=== PATIENT | male | born 1970 | race Hispanic/Latino ===

== ENCOUNTER 2024-05-09 19:57 | Emergency (ER) | payer OTHER ==
--- OUTSIDE RECORDS SUMMARY | 2024-05-09 20:00 | XMS REPORT | Continuity of Care Document ---
Author Name Unknown Address [address] [facility] [address] [place] [address] [facility] Address [address] [facility] [place] [address] Care Team Providers Care Translator Interpreter Name Role Phone EMI CHRISTIAN Primary Care Physician Unavailab Beau Bird I Attending Clinician Unavail able ALEA MCNULTY K.HAlexander Attending Clinician Unavaila JERRY Lau Attending Clinician Unavailable Luis Fernando Coronado Attending Clinician [phone] Jerry Astorga MD Attending Clinician [phone] Alea Mcnulty MD K.HAlexander Attending Clinician + [phone] Nurse, [facility] Attending Clinician Un available Unknown, Attending Attending Clinician Unavailab ALE Lan Attending Clinician Unavailable Doctor Unassigned, [place] Attending Clinician U navailBeau Reece I Admitting Clinician Unavail able JERRY ASTORGA Admitting Clinician Unavailable Jerry Astorga MD Admitting Clinician [phone] Payers Payer Name Policy Type Policy Number Effective Date Expirati on Date Source [employer] [id number] 2020 00:00:00 Problems Condition Name Condition Details Condition Category Status Onset Date Resolution Date Last Treatment Date Treating Clinician Comments Source Atypical chest pain Atypical chest pain Disease Active 03-28 00:00: 00 [facility] Dyslipidem ia Dyslipidem ia Disease Active 03-28 00:00: 00 [facility] Type 2 diabetes mellitus without complicati on Type 2 diabetes mellitus without complicati on Disease Active 03-28 00:00: 00 [facility] Palpitatio ns Palpitatio ns Disease Active 03-28 00:00: 00 [facility] Family history of premature CAD Family history of premature CAD Disease Active 03-28 00:00: 00 [facility] Morbid obesity with body mass index of 40.0-49.9 Morbid obesity with body mass index of 40.0-49.9 Disease Active 03-28 00:00: 00 [facility] No known active problems No known active problems Disease [facility] Allergies, Adverse Reactions, Alerts Allergy Name Allergy Type Status Severity Reaction(s) Onset Date Inactive Date Treating Clinician Comments Source No Known Allergie s DA Active U 04-22 00:00: 00 [facility] NO KNOWN ALLERGIE S Drug Class Active [facility] Social History Social Habit Start Date Stop Date Quantity Comments Source History SDOH Alcohol Binge [facility] Exposure to SARS-CoV-2 (event) Not sure [facility] History SDOH Alcohol Frequency [facility] History SDOH Alcohol Std Drinks [facility] Education 2021-03-28 00:00:00 2021-03-28 00:00:00 13 [facility] Tobacco Comment 2021-03-28 00:00:00 2021-03-28 00:00:00 pt reports quit 10-15 years ago. reports still vapes without nicotine [facility] Alcohol intake 2021-03-28 00:00:00 2021-03-28 00:00:00 Current drinker of alcohol (finding) [facility] Alcohol Comment 2013-01-12 00:00:00 2013-01-12 00:00:00 12 pack/ 2 times per month [facility] Tobacco use and exposure 2013-01-12 00:00:00 2013-01-12 00:00:00 Never used [facility] History of tobacco use 2006-07-25 00:00:00 Cigarette Smoker [facility] Sex Ass[birth year] At 1970 00:00:00 1970 00:00:00 [facility] Smoking Status Start Date Stop Date Source Former smoker 2013-01-12 00:00:00 2013-01-12 00:00:00 [facility] Medications Ordered Medication Name Filled Medication Name Start Date Stop Date Current Medication? Ordering Clinician Indication Dosage Frequency Signature (SIG) Comments Components Source Sliding Scale Insulin - Lispro (HumaLOG) + Fsbg Testing 03-29 13:30: 00 Yes Subcutaneo us, AC, First dose on Fri03/29/21 at 0730, Until Discontinu ed, Routine [facility] semaglutide (OZEMPIC) 0.25 mg or 0.5 mg(2 mg/1.5 mL) PnIj 03-29 12:04: 38 Yes .5mg inject 0.5 mg under the skin weekly. [facility] rosuvastati n 20 mg CpSP 03-29 12:04: 38 Yes 20mg Take 20 mg by mouth daily. [facility] aspirin 81 mg EC tablet 03-29 12:04: 38 Yes 81mg Take 81 mg by mouth daily. [facility] zolpidem (AMBIEN) tablet 5 mg 03-29 00:51: 20 Yes 5mg 5 mg, Oral, QHSPRN, Starting on Fri03/28/21 at 1851, Until Discontinu ed, Routine, Insomnia [facility] enoxaparin (LOVENOX) injection 40 mg 03-28 23:00: 00 Yes 40mg 40 mg, Subcutaneo us, DAILY, First dose on Fri03/28/21 at 1700, Until Discontinu ed, Routine [facility] sulfur hexafluorid e microsphr (LUMASON) injection 5 mL 03-28 22:15: 00 03-28 22:15 :00 No [id number] 5mL 5 mL, Intravenou s, ONCE, 1 dose, On Fri03/28/21 at 1615, Routine
human resources team member approving Restricted medication : MISBAH DEL CID [facility] HYDROcodone -acetaminop hen (NORCO 5) 5-325 mg tablet 1 tablet 03-28 20:57: 04 03-30 20:56 :04 No 1{tbl} 1 tablet, Oral, Q6HPRN, Starting on Fri03/28/21 at 1457, Until Fri03/30/21 at 1456, Routine, Pain (scale 4-6) [facility] acetaminoph en (TYLENOL) tablet 650 mg 03-28 20:57: 01 Yes 650mg 650 mg, Oral, Q6HPRN, Starting on Fri03/28/21 at 1457, Until Discontinu ed, Routine, Pain (scale 1-3) [facility] ketorolac (TORADOL) injection 15 mg 03-28 20:15: 00 03-28 19:21 :00 No 15mg 15 mg, Slow IV Push, ONCE, 1 dose, On Fri03/28/21 at 1415, Routine
human resources team member approving Restricted medication : Luis Fernando SHANKAR [facility] nitroglycer in (NITROL) 2 % ointment 0.5 Inch 03-28 18:45: 00 03-28 18:45 :00 No .5[in_u s] 0.5 Inch, Transderma l (Apply To Skin), ONCE, 1 dose, On Fri03/28/21 at 1245, INDY [facility] aspirin chewable tablet 324 mg 03-28 17:45: 00 03-28 16:50 :00 No 324mg 324 mg, Oral, ONCE, 1 dose, On Fri03/28/21 at 1145, Routine [facility] ibuprofen (MOTRIN) 800 mg tablet 2012-02 00:00: 00 Yes [id number] 9100 800mg Take 1 Tab by mouth every 6 (six) hours as needed (pain). [facility] Vital Signs Vital Name Observation Time Observation Value Comments S ource Systolic blood pressure 2021-03-29 17:15:00 126 mm[Hg] [facility] Diastolic blood pressure 2021-03-29 17:15:00 75 mm[Hg] [facility] Heart rate 2021-03-29 17:15:00 81 /min [facility] Body temperature 2021-03-29 17:15:00 36.61 Emy [facility] Respiratory rate 2021-03-29 17:15:00 18 /min [facility] Oxygen saturation in Arterial blood by Pulse oximetry 2021-03-29 17:15:00 94 /min [facility] Body height 2021-03-28 23:43:00 172.7 cm [facility] Body weight 2021-03-28 23:43:00 119.976 kg [facility] BMI 2021-03-28 23:43:00 40.22 kg/m2 [facility] Heart rate 2021-03-28 15:30:00 95 /min [facility] Body temperature 2021-03-28 15:30:00 37 Emy [facility] Respiratory rate 2021-03-28 15:30:00 18 /min [facility] Body height 2021-03-28 15:30:00 172.7 cm [facility] Body weight 2021-03-28 15:30:00 125.193 kg [facility] BMI 2021-03-28 15:30:00 41.97 kg/m2 [facility] Oxygen saturation in Arterial blood by Pulse oximetry 2021-03-28 15:30:00 96 /min [facility] Systolic blood pressure 2021-03-28 15:30:00 123 mm[Hg] [facility] Diastolic blood pressure 2021-03-28 15:30:00 80 mm[Hg] [facility] Procedures Procedure Date / Time Performed Performing Clinician Source POCT GLUCOSE (AUTOMATED) 2021-03-29 17:18:00 Jerry Astorga [facility] POCT GLUCOSE (AUTOMATED) 2021-03-29 13:54:00 Jerry Astorga [facility] MAGNESIUM 2021-03-29 10:45:00 [facility] BASIC METABOLIC PANEL (NA, K, CL, CO2, GLUCOSE, BUN, CREATININE, CA) 2021-03-29 10:45:00 Jerry Astorga [facility] CBC WITH DIFF 2021-03-29 10:45:00 Jerry Astorga [facility] PHOSPHORUS 2021-03-29 00:00:00 Jerry [facility]orga [facility] THYROID STIMULATING HORMONE 2021-03-29 00:00:00 Agnieszka Diaz [facility] TROPONIN I 2021-03-28 23:59:00 Jerry [facility]orga [facility] POCT GLUCOSE (AUTOMATED) 2021-03-28 22:22:00 Jerry Astorga [facility] TRANSTHORACIC ECHO (TTE) COMPLETE W/ CONTRAST 2021-03-28 21:43:00 Jerry Astorga [facility] COVID-19 (ID NOW RAPID TESTING) 2021-03-28 19:53:00 Luis Fernando Shankar [facility] TROPONIN I 2021-03-28 18:24:00 Luis Fernando Shankar [facility] LIPID PANEL (43000)(TOTAL CHOLESTEROL, TRIGLYCERIDES, HDL) 2021-03-28 18:24:00 Alea Mcnulty.Chris [facility] N-TERMINAL PRO-BNP 2021-03-28 18:24:00 Alea Mcnulty [facility] ASSIGNMENT OF BENEFITS 2021-03-28 17:05:55 Docto r Unassigned, [place] [facility] XR CHEST 1 VW 2021-03-28 16:48:59 Jian Hastings [facility] LIPASE 2021-03-28 16:23:00 Jian Hastings [facility] TROPONIN I 2021-03-28 16:23:00 Jian Hastings [facility] COMP. METABOLIC PANEL (72375) 2021-03-28 16:23:00 [facility]FF 2021-03-28 16:23:00 Jian Hastings [facility] GLYCOSYLATED HEMOGLOBIN (A1C) 2021-03-28 16:23:00 Alea Mcnulty [facility] PROTHROMBIN TIME / INR 2021-03-28 16:23:00 Maurice Hastings [facility] D-DIMER 2021-03-28 16:23:00 Luis Fernando Shankar [facility] ACTIVATED PARTIAL THRMPLAS DORY 2021-03-28 16:23:00 Jian Hastings [facility] NOTICE OF PRIVACY PRACTICES 2021-03-28 16:01:47 Doctor Unassigned, [place] [facility] CONSENT/REFUSAL FOR DIAGNOSIS AND TREATMENT 2021-03-28 16:01:20 Doctor Unassigned, [place] [facility] CONSENT/REFUSAL FOR DIAGNOSIS AND TREATMENT 2021-03-28 15:32:31 Doctor Unassigned, [place] [facility] Encounters Start Date/Time End Date/Time Encounter Type Admission Type Attending [facility] Care Facility Care Department Encounter ID Source 2023-04-25 09:07:00 2023-04-25 09:07:00 Outpatient Beau Connelly [facility] [id number] [facility] 2021-04-16 16:00:00 2021-04-16 16:00:00 Outpatient ALEA GONGORA [facility] [id number] [facility] 2021-04-14 08:15:00 2021-04-14 08:15:00 Outpatient ALEA GONGORA [facility] [id number] [facility] 2021-03-28 10:18:00 2021-03-29 11:53:00 Outpatient [facility] [id number] [facility] 2021-03-28 10:18:00 2021-03-29 11:53:00 Emergency Luis Fernando Shankar [facility] [id number] [facility] 2021-03-29 00:00:00 2021-03-29 00:00:00 Case Management Alea Mcnulty [facility] [id number] [id number] [facility] 2021-03-28 09:50:00 2021-03-28 10:10:00 Nurse Visit Nurse, [facility] Unknown, Attending [facility] [id number] [facility] 2021-03-28 09:50:00 2021-03-28 09:50:00 Outpatient ALE DUNN [facility] [id number] [facility] 2021-03-28 00:00:00 2021-03-28 00:00:00 Orders Only Doctor Unassigned, [place] [facility] [id number] [id number] [facility] Results Test Description Test Time Test Comments Results Result Co mments Source GLUCOSE BEDSIDE [id number] 09:51:00* Test Item Value Reference Range Interpretation Comme nts GLUCOSE BEDSIDE TESTING (sharon t code = GLUBED) 123 mg/dL 70-110 H PROTHROMBIN [id number] 16:24:00* Test Item Value Reference Range Interpretation Comme [facility] PT PATIENT (test code = PTP) 11.9 SECONDS 9.3-12.9 N INTERNATIONAL NORMAL RATIO (test code = INR) 1.06 INR Unit 0.8-1.2 N TARGET INR BY INDICATION Indication INR1. Prophylaxis of venous thrombosis 2.0 - 3.0 (orthopedic surgery), Prophylaxis of venous thrombosis (other than high-risk surgery), Treatment of Deep Vein Thrombosis/Pulmonary Embolism, Prevention of systemic embolism - Tissue heart valves, Acute Myocardial Infarction (to prevent systemic embolism), Valvular heart disease, Acute Myocardial Infarction (to prevent systemic embolism), Valvular heart disease, Atrial Fibrillation, Bileaflet mechanical valve in aortic position.2. Mechanical prosthetic valves (high risk), 2.5 - 3.5 Presence of Lupus Anticoagulant or Antiphospholipid Antibodies, Prevention of systemic embolism - Acute Myocardial Infarction (to prevent recurrent infarct). COVID 19 INHOUSE [id number] 16:17:00* Test Item Value Reference Range Interpretation Comme nts COVID 19 INHOUSE AG (test code = [id number]) NEGATIVE Negative Per stave cutter , negative results should be treated aspresumptive and, if inconsistent with clinical signs andsymptoms or necessary for patient management, should betested with an alternative molecular assay. Negative resultsdo not preclude SARS-CoV-2 infection and should not be usedas the sole basis for patient management decisions. Negative results should be considered in the context of apatient's recent exposures, history, presence of clinicalsigns and symptoms consistent with COVID-19. BASIC METABOLIC [id number] 16:11:00* Test Item Value Reference Range Interpretation Comme nts SODIUM (test code = NA) 139 mmol/L 136-145 N POTASSIUM (test code = K) 4.1 mmol/L 3.5-5.1 N CHLORIDE (test code = CL) 103 mmol/L 98-107 N CARBON DIOXIDE (test code = CO2) 27 mmol/L 21-32 N ANION GAP (test code = GAP) 9 GAP calc 4-15 N GLUCOSE (test code = GLU) 96 MG/DL 70-110 N BLOOD UREA NITROGEN (test code = BUN) 15 MG/DL 7-18 N GLOMERULAR FILTRATION RATE (test code = GFR) >=60 max estimate estGFR >60 The Glomerular Filtration Rate is a calculated parameterbased on serum Creatinine, patient age and sex. GFR valuesless than 60 mL/min/1.73 square meters are indicative ofChronic Kidney Disease. Values less than 15 mL/min/1.73square meters indicate Kidney failure. The calculation forGFR is based on the CKD-EPI (202) calculation. This formulais race indifferent and is the recommended formula for GFRby the National Kidney Foundation for Adults.The GFR will not calculate if the sex is unknown or if thepatient's age is <18 years. CREATININE (test code = CREAT) 0.8 MG/DL 0.8-1.3 N CALCIUM (test code = CA) 9.1 MG/DL 8.5-10.1 N - XR CHEST 1 [id number] 15:47:00 [facility] 1970 Sex: M Name: SARINA POSADA [facility] : 1970 Age/S: 52 / M [address] Unit #: [id number] Loc: [place] [address] Phys: Edda Wright MD Acct: [id number] Dis Date: Status[place] [facility] [place] #: [phone] Exam Date: 04/22/2023 1520 FAX #: Reason: SURGERY EXAMS: CPT: [id number] XR CHEST1 V 16753 Fluoro Time: DAP (Gy m2): Air Kerma (mGy): STUDY: Chest radiograph HISTORY: Surgery COMPARISON: None. TECHNIQUE: Frontal view of the chest. LOCATION: H19 FINDINGS: The cardiac silhouette isunremarkable. There is no focal consolidation, pleural effusion, or pneumothorax. No acute osseousabnormalities are identified. IMPRESSION: No radiographic evidence for acute pulmonary abnormality. at 1547 Reported and signed by: Curtis Blackwell M.D. CC: Edda Wright MD; Obonorumfela Moseley DO PAGE 1 Signed Report Name: SARINA POSADA [facility] : 1970 Age/S: 52 / M [address] [facility] Unit #: [id number] Loc: [place] [address] Phys: Edda Wright MD Acct: [id number] Dis Date: Status: PRE SDC PHONE #: [phone] Exam Date: 04/22/2023 1520 FAX #: Reason: SURGERY EXAMS: CPT: [id number] XR CHEST 1 V 19408 Fluoro Time: DAP (Gy m2): Air Kerma (mGy): (Continued) Technologist: Mis Siddiqui, RT(R)(CT) Trnscb Date/Time: 04/22/2023 (0387) t.[id number] Orig Print D/T: S: 04/22/2023 (5849) PAGE 2 Signed ReportCBC W/AUTO [id number] 15:19:00* Test Item Value Reference Range Interpretation Comme nts WHITE BLOOD CELL (test code = WBC) 7.4 K/mm3 3.5-11.0 N RED BLOOD CELL (test code = RBC) 5.14 M/mm3 4.70-6.10 N HEMOGLOBIN (test code = HGB) 14.2 G/DL 12.3-15.9 N HEMATOCRIT (test code = HCT) 43.4 % 35.8-46.7 N MEAN CELL VOLUME (test code = MCV) 84.4 Fl 86.3-98.9 L MEAN CELL HGB (test code = MCH) 27.6 pg 28.9-34.4 L MEAN CELL HGB CONCETRATION (test code = MCHC) 32.7 G/DL 32.1-34.5 N RED CELL DISTRIBUTION WIDTH (test code = RDW) 13.3 SD 11.5-14.5 N PLATELET COUNT (test code = PLT) 269 K/mm3 150-450 N MEAN PLATELET VOLUME (test c ode = MPV) 9.40 fL 7.0-9.6 N NEUTROPHIL % (test code = NT%) 64.5 % 40-76 N IMMATURE GRANULOCYTE % (test code = IG%) 0.3 % 0.0-5.0 N LYMPHOCYTE % (test code = LY%) 27.3 % 20.5-51.1 N MONOCYTE % (test code = MO%) 6.5 % 1.7-9.3 N EOSINOPHIL % (test code = EO%) 1.1 % 0.0-6.0 N BASOPHIL % (test code = BA%) 0.3 % 0.0-2.0 N NUCLEATED RBC % (test code = NRBC%) 0.0 /100WBC% 0.0-1.0 N NEUTROPHIL # (test code = NT#) 4.8 K/mm3 1.8-7.6 N IMMATURE GRANULOCYTE # (test code = IG#) 0.02 x10 3/uL 0.00-0.03 N LYMPHOCYTE # (test code = LY#) 2.0 K/mm3 0.6-3.0 N MONOCYTE # (test code = MO#) 0.5 K/mm3 0.2-1.5 N EOSINOPHIL # (test code = EO#) 0.1 K/mm3 0.0-0.4 N BASOPHIL # (test code = BA#) 0.0 K/mm3 0.0-0.2 N NUCLEATED RBC # (test code = NRBC#) 0.0 K/mm3 0.00-0.01 N POCT GLUCOSE (AUTOMATED)2021-03-29 17:42:23* Test Item Value Reference Range Interpretation Comme [facility] POCT GLU (test code = 7635266229) 102 mg/dL 70-110 Lab Interpretation (test cod e = 10690-6) Normal [facility]2021-03-29 14:04:03* Test Item Value Reference Range Interpretation Comme [facility] POCT GLU (test code = 7252281275) 107 mg/dL 70-110 Lab Interpretation (test cod e = 06144-7) Normal [facility] Metabolic Panel (NA, K, CL, CO2, GLUCOSE, BUN, CREATININE, CA)2021-03-29 12:51:14* Test Item Value Reference Range Interpretation Comme nts NA (test code = 6255577502) 137 mmol/L 135-145 K (test code = 9620313621) 4.3 mmol/L 3.5-5.0 CL (test code = 0765605305) 105 mmol/L 98-108 CO2 TOTAL (test code = 0463262281) 26 mmol/L 23-31 AGAP (test code = 1317229507) 2-16 BUN (test code = 5028981282) 17 mg/dL 7-23 GLUCOSE (test code = 8632741317) 110 mg/dL 70-110 CREATININE (test code = 6850956806) 0.78 mg/dL 0.60-1.25 CALCIUM (test code = 5736655909) 8.6 mg/dL 8.6-10.6 eGFR (test code = 1025139050) mL/min/1.73m2 JOSÉ LUIS (test code = JOSÉ LUIS) Association of Glomerular Filtration Rate (GFR) and Staging of Kidney Disease* + + +- +| GFR (mL/min/1.73 m2) ?| With Kidney Damage ?| ?Without Kidney Damage+ ------+ ----+ ------+| ?>90 ?| ?Stage one ?| ? Normal ?+ -+ + -+| ?60-89 ?| ?Stage two ?| ? Decreased GFR ? + + +- +| ?30-59 ?| ?Stage three ?| ? Stage three ? + + +- +| ?15-29 ?| ?Stage four ? | ? Stage four ?+ -+ + -+| ?<15 (or dialysis) ? ?| ?Stage five ? | ? Stage five ?+ -+ + -+ *Each stage assumes the associated GFR level has been in effect for at least three months. ?Stages 1 to 5, with or without kidney disease, indicate chronic kidney disease. Notes: Determination of stages one and two (with eGFR >59mL/min/1.73 m2) requires estimation of kidney damage for at least three months as defined by structural or functional abnormalities of the kidney, manifested by either:Pathological abnormalities or Markers of kidney damage (including abnormalities in the composition of the blood or urine or abnormalities in imaging tests). [facility] [id number] 12:51:14* Test Item Value Reference Range Interpretation Comme nts MAGNESIUM (test code = 0291751455) 2.1 mg/dL 1.7-2.4 Lab Interpretation (test cod e = 46502-3) Normal [facility] with [id number] 12:37:10* Test Item Value Reference Range Interpretation Comme nts WBC (test code = 6690-2) See_Comment [Automated Intucella ge] The system which generated this result transmitted reference range: 4.20 - 10.70 10*3/?L. The reference range was not used to interpret this result as normal/abnormal. RBC (test code = 789-8) See_Comment [Automated Intucella ge] The system which generated this result transmitted reference range: 4.26 - 5.52 10*6/?L. The reference range was not used to interpret this result as normal/abnormal. HGB (test code = 718-7) 13.6 g/dL 12.2-16.4 HCT (test code = 4544-3) 41.7 % 38.4-49.3 MCV (test code = 787-2) 83.9 fL 81.7-95.6 MCH (test code = 785-6) 27.4 pg 26.1-32.7 MCHC (test code = 786-4) 32.6 g/dL 31.2-35.0 RDW-SD (test code = 10198-7) 41.0 fL 38.5-51.6 RDW-CV (test code = 788-0) 13.3 % 12.1-15.4 PLT (test code = 777-3) See_Comment [Automated Intucella ge] The system which generated this result transmitted reference range: 150 - 328 10*3/?L. The reference range was not used to interpret this result as normal/abnormal. MPV (test code = 30264-9) 9.8 fL 9.8-13.0 NRBC/100 WBC (test code = 6957495884) See_Comment [Automated Captalis ssage] The system which generated this result transmitted reference range: 0.0 - 10.0 /100 WBCs. The reference range was not used to interpret this result as normal/abnormal. NRBC x10^3 (test code = 8954755713) <0.01 See_Comment [Automated me ssage] The system which generated this result transmitted reference range: 10*3/?L. The reference range was not used to interpret this result as normal/abnormal. GRAN MAT (NEUT) % (test code = 770-8) 68.6 % IMM GRAN % (test code = 6832586959) 0.30 % LYMPH % (test code = 736-9) 22.4 % MONO % (test code = 5905-5) 6.8 % EOS % (test code = 713-8) 1.6 % BASO % (test code = 706-2) 0.3 % GRAN MAT x10^3(ANC) (test code = 2129595048) 4.34 10*3/uL 1.99-6.95 IMM GRAN x10^3 (test code = 3948489857) <0.03 0.00-0.06 LYMPH x10^3 (test code = 731-0) 1.42 10*3/uL 1.09-3.23 MONO x10^3 (test code = 742-7) 0.43 10*3/uL 0.36-1.02 EOS x10^3 (test code = 711-2) 0.10 10*3/uL 0.06-0.53 BASO x10^3 (test code = 704-7) <0.03 0.01-0.09 [facility] [id number] 02:48:44 * Test Item Value Reference Range Interpretation Comme nts TSH (test code = 5689711698) See_Comment [Automated messa ge] The system which generated this result transmitted reference range: 0.45 - 4.70 mIU/L. The reference range was not used to interpret this result as normal/abnormal. Lab Interpretation (test code = 83591-0) Normal [facility] HospitalTROP[facility] [id number] 01:39:07* Test Item Value Reference Range Interpretation Comments TROPONIN I (test code = 1670693728) 0.001 ng/mL See_Comment [Automated message] The system which generated this result transmitted reference range: <=0.034. The reference range was not used to interpret this result as normal/abnormal. JOSÉ LUIS (test code = JOSÉ LUIS) Reference (Normal) Range (defined by the 99th percentile reference limit): <= 0.034 ng/mL Note: Cardiac troponin begins to rise 3-4 hours after the onset of ischemia. Repeat in 4-6 hours if the sample was drawn within 3-4 hours of the onset of the symptom and found normal. Diagnosis of myocardial injury is made with acute changes in cTn concentrations with at least one serial sample above the 99th percentile upper reference limit (URL), taken together with the patient's clinical presentation. Biotin has been reported to cause a negative bias, interpret results relative to patient's use of biotin. Lab Interpretation (test code = 43051-8) [facility] [id number] 00:39:53* Test Item Value Reference Range Interpretation Comme nts PHOSPHORUS (test code = 0204019441) 3.5 mg/dL 2.5-5.0 Lab Interpretation (test cod e = 13547-0) Normal [facility]GLYCOSYLATED HEMOGLOBIN (A1C)2021-03-28 22:49:16* Test Item Value Reference Range Interpretation Comme nts HGB A1C (test code = 4548-4) 6.0 % 4.0-5.7 H JOSÉ LUIS (test code = JOSÉ LUIS) Reference RangesNormal: <5.7%Prediabetes: 5.7 - 6.4%Diabetes: > 6.5% Lab Interpretation (test code = 76195-6) Abnormal [facility]PO[facility] GLUCOSE (AUTOMATED)2021-03-28 22:25:26* Test Item Value Reference Range Interpretation Comme nts POCT GLU (test code = 6884544298) 91 mg/dL 70-110 Lab Interpretation (test cod e = 57671-3) Normal [facility]-TERMINAL [id number] 22:00:36* Test Item Value Reference Range Interpretation Comme nts NT-proBNP (test code = 8126542323) <11 See_Comment [Automated message] The system which generated this result transmitted reference range: <=125 pg/mL. The reference range was not used to interpret this result as normal/abnormal. JOSÉ LUIS (test code = JOSÉ LUIS) Biotin has been reported to cause a negative bias, interpret results relative to patient's use of biotin. Lab Interpretation (test code = 17162-6) Normal [facility]LIP[facility] PANEL (03198)(TOTAL CHOLESTEROL, TRIGLYCERIDES, HDL)2021-03-28 21:49:51* Test Item Value Reference Range Interpretation Comme nts CHOL (test code = 7939125684) 109 mg/dL 120-200 L HDL (test code = 7636864925) 44 mg/dL >40 HDLC RATIO (test code = 6319477288) See_Comment [Automated [employer]] The system which generated this result transmitted reference range: <=5.0. The reference range was not used to interpret this result as normal/abnormal. TRIG (test code = 3315799068) 96 mg/dL 30-170 LDL CHOL (test code = 35079-6) 46 mg/dL See_Comment [Automated [employer]] The system which generated this result transmitted reference range: <=160. The reference range was not used to interpret this result as normal/abnormal. VLDL (test code = 5990916631) 19 mg/dL 5-60 Lab Interpretation (test code = 87186-7) Abnormal [facility] HospitalTROPONIN [id number] 19:02:28* Test Item Value Reference Range Interpretation Comments TROPONIN I (test code = 1550673024) 0.003 ng/mL See_Comment [Automated message] The system which generated this result transmitted reference range: <=0.034. The reference range was not used to interpret this result as normal/abnormal. JOSÉ LUIS (test code = JOSÉ LUIS) Reference (Normal) Range (defined by the 99th percentile reference limit): <= 0.034 ng/mL Note: Cardiac troponin begins to rise 3-4 hours after the onset of ischemia. Repeat in 4-6 hours if the sample was drawn within 3-4 hours of the onset of the symptom and found normal. Diagnosis of myocardial injury is made with acute changes in cTn concentrations with at least one serial sample above the 99th percentile upper reference limit (URL), taken together with the patient's clinical presentation. Biotin has been reported to cause a negative bias, interpret results relative to patient's use of biotin. Lab Interpretation (test code = 97884-7) Normal [facility] HospitalD-[id number] 17:55:55* Test Item Value Reference Range Interpretation Comments D-DIMER (test code = 8907430408) <0.27 See_Comment [Automated message] The system which generated this result transmitted reference range: <0.41 ?g/mL (FEU). The reference range was not used to interpret this result as normal/abnormal. JOSÉ LUIS (test code = JOSÉ LUIS) This test may be used in conjunction with a clinical pretest probability (PTP) assessment model to exclude venous thromboembolism (VTE) in patients suspected of deep venous thrombosis (DVT) and pulmonary embolism (PE) A D-Dimer value less than 0.50 ?g/ml (FEU) has a negative predicative value of 96 to 100% (95% CI)and 97 to 100% (95% CI) as an aid in the diagnosis of deep vein thrombosis (DVT) and pulmonary embolism when there is low or moderate pretest probability of PE or DVT. D-Dimer values are expressed in initial fibrinogen equivalent units (FEU)" The assay results should be used with other information, including the clinical context, in forming a diagnosis. Lab Interpretation (test code = 37816-6) Normal [facility] HospitalTROPONIN [id number] 16:54:26* Test Item Value Reference Range Interpretation Comments TROPONIN I (test code = 3584251942) 0.002 ng/mL See_Comment [Automated message] The system which generated this result transmitted reference range: <=0.034. The reference range was not used to interpret this result as normal/abnormal. JOSÉ LUIS (test code = JOSÉ LUIS) Reference (Normal) Range (defined by the 99th percentile reference limit): <= 0.034 ng/mL Note: Cardiac troponin begins to rise 3-4 hours after the onset of ischemia. Repeat in 4-6 hours if the sample was drawn within 3-4 hours of the onset of the symptom and found normal. Diagnosis of myocardial injury is made with acute changes in cTn concentrations with at least one serial sample above the 99th percentile upper reference limit (URL), taken together with the patient's clinical presentation. Biotin has been reported to cause a negative bias, interpret results relative to patient's use of biotin. Lab Interpretation (test code = 85057-2) Normal [facility] HospitalaPTT2022-02-02 16:44:09* Test Item Value Reference Range Interpretation Comme nts APTT Patient (test code = 3173-2) See_Comment [Automated message] The system which generated this result transmitted reference range: 23 - 38 Seconds. The reference range was not used to interpret this result as normal/abnormal. JOSÉ LUIS (test code = JOSÉ LUIS) The [facility] patient population mean normal value for aPTT is 30 seconds. Lab Interpretation (test code = 74515-6) Normal [facility] HospitalCOM. METABOLIC PANEL (36515)2021-03-28 16:44:09* Test Item Value Reference Range Interpretation Comme nts NA (test code = 1460447148) 137 mmol/L 135-145 K (test code = 1484860267) 4.5 mmol/L 3.5-5.0 CL (test code = 9717258729) 102 mmol/L 98-108 CO2 TOTAL (test code = 0236291211) 26 mmol/L 23-31 AGAP (test code = 7364885860) 2-16 BUN (test code = 4470834992) 19 mg/dL 7-23 GLUCOSE (test code = 8004034241) 111 mg/dL 70-110 H CREATININE (test code = 5762579002) 0.85 mg/dL 0.60-1.25 TOTAL BILI (test code = 0171976113) 0.7 mg/dL 0.1-1.1 CALCIUM (test code = 0525955977) 9.1 mg/dL 8.6-10.6 T PROTEIN (test code = 0041794834) 7.1 g/dL 6.3-8.2 ALBUMIN (test code = 8528532178) 4.5 g/dL 3.5-5.0 ALK PHOS (test code = 2244010508) 70 U/L 34-122 ALTv (test code = 1742-6) 28 U/L 5-50 AST(SGOT) (test code = 6710551158) 26 U/L 13-40 eGFR (test code = 3513976628) mL/min/1.73m2 JOSÉ LUIS (test code = JOSÉ LUIS) Association of Glomerular Filtration Rate (GFR) and Staging of Kidney Disease* + --+ --+ ------+| GFR (mL/min/1.73 m2) ?| With Kidney Damage ?| ?Without Kidney Damage+ --------+ --------+ +| ?>90 ?| ?Stage one ?| ? Normal ?+ ---+ ---+ -------+| ?60-89 ?| ?Stage two ?| ? Decreased GFR ? + --+ --+ ------+| ?30-59 ?| ?Stage three ?| ? Stage three ? + --+ --+ ------+| ?15-29 ?| ?Stage four ? | ? Stage four ?+ ---+ ---+ -------+| ?<15 (or dialysis) ? ?| ?Stage five ? | ? Stage five ?+ ---+ ---+ -------+ *Each stage assumes the associated GFR level has been in effect for at least three months. ?Stages 1 to 5, with or without kidney disease, indicate chronic kidney disease. Notes: Determination of stages one and two (with eGFR >59mL/min/1.73 m2) requires estimation of kidney damage for at least three months as defined by structural or functional abnormalities of the kidney, manifested by either:Pathological abnormalities or Markers of kidney damage (including abnormalities in the composition of the blood or urine or abnormalities in imaging tests). Lab Interpretation (test code = 24353-8) Abnormal [facility] HospitalLIPASE, [id number] 16:43:28* Test Item Value Reference Range Interpretation Comme [facility] LIPASE (test code = 6622364613) 151 U/L 0-220 Lab Interpretation (test cod e = 84507-6) Normal [facility] HospitalPROTHROMBIN TIME / [id number] 16:42:08* Test Item Value Reference Range Interpretation Comme nts PROTIME PATIENT (test code = 5964-2) See_Comment [Automated [employer]] The system which generated this result transmitted reference range: 12.0 - 14.7 Seconds. The reference range was not used to interpret this result as normal/abnormal. INR (test code = 6301-6) Normal INR <1.1; Warfarin Therapeutic range 2.0 to 3.0 or 2.5 to 3.5, depending upon the indications. Lab Interpretation (test code = 11532-7) Normal [facility] HospitalCBC WITH [id number] 16:33:05* Test Item Value Reference Range Interpretation Comme nts WBC (test code = 6690-2) See_Comment [Automated [employer]] The system which generated this result transmitted reference range: 4.20 - 10.70 10*3/?L. The reference range was not used to interpret this result as normal/abnormal. RBC (test code = 789-8) See_Comment [Automated [employer]] The system which generated this result transmitted reference range: 4.26 - 5.52 10*6/?L. The reference range was not used to interpret this result as normal/abnormal. HGB (test code = 718-7) 14.1 g/dL 12.2-16.4 HCT (test code = 4544-3) 43.7 % 38.4-49.3 MCV (test code = 787-2) 84.7 fL 81.7-95.6 MCH (test code = 785-6) 27.3 pg 26.1-32.7 MCHC (test code = 786-4) 32.3 g/dL 31.2-35.0 RDW-SD (test code = 99244-6) 41.3 fL 38.5-51.6 RDW-CV (test code = 788-0) 13.3 % 12.1-15.4 PLT (test code = 777-3) See_Comment [Automated messa ge] The system which generated this result transmitted reference range: 150 - 328 10*3/?L. The reference range was not used to interpret this result as normal/abnormal. MPV (test code = 64166-6) 9.7 fL 9.8-13.0 L NRBC/100 WBC (test code = 5190884030) See_Comment [Automated [employer]] The system which generated this result transmitted reference range: 0.0 - 10.0 /100 WBCs. The reference range was not used to interpret this result as normal/abnormal. NRBC x10^3 (test code = 1276506804) <0.01 See_Comment [Automated messa ge] The system which generated this result transmitted reference range: 10*3/?L. The reference range was not used to interpret this result as normal/abnormal. GRAN MAT (NEUT) % (test code = 770-8) 64.5 % IMM GRAN % (test code = 2415824739) 0.40 % LYMPH % (test code = 736-9) 26.9 % MONO % (test code = 5905-5) 6.7 % EOS % (test code = 713-8) 1.1 % BASO % (test code = 706-2) 0.4 % GRAN MAT x10^3(ANC) (test code = 5942934102) 4.73 10*3/uL 1.99-6.95 IMM GRAN x10^3 (test code = 4028056826) 0.03 10*3/uL 0.00-0.06 LYMPH x10^3 (test code = 731-0) 1.97 10*3/uL 1.09-3.23 MONO x10^3 (test code = 742-7) 0.49 10*3/uL 0.36-1.02 EOS x10^3 (test code = 711-2) 0.08 10*3/uL 0.06-0.53 BASO x10^3 (test code = 704-7) 0.03 10*3/uL 0.01-0.09 Lab Interpretation (test code = 52286-0) Abnormal [facility] Notes Date/Time Note Provider Source 2023-04-25 10:29:00 [id number] [place] [address] PATIENT NAME: SARINA POSADA ADMIT DATE: 04/25/23 ACCOUNT NO: [id number] ROOM NO: AGE: 52 REPORT TYPE: ENDOSCOPY REPORT SEX: M ADMITTING PHYSICIAN: ATTENDING PHYSICIAN: Beau Moseley DO Patient Name: Sarina Posada Procedure Date: 04/25/2023 10:29 AM Date of : 1970 Gender: Male Attending MD: Beau Moseley MD Procedure: Upper GI endoscopy Indications: Gastro-esophageal reflux disease Providers: Beau Moseley MD (Doctor), Rosalee So (Nurse) Referring MD: Requesting Provider: Medicines: Monitored Anesthesia Care Complications: No immediate complications. Procedure: Pre-Anesthesia Assessment: - Prior to the procedure, a History and Physical was performed, and patient medications and allergies were reviewed. The patient is competent. The risks and benefits of the procedure and the sedation options and risks were discussed with the patient. All questions were answered and informed consent was obtained. Patient identification and proposed procedure were verified by the physician, the nurse, the anesthesiologist and the tool technician in the endoscopy suite. Mental Status Examination: alert and oriented. Airway Examination: Mallampati Class III (part of the uvula and soft palate visualized). Prophylactic Antibiotics: The patient does not require prophylactic antibiotics. Prior Anticoagulants: The patient has taken no previous anticoagulant or antiplatelet agents. ASA Grade Assessment: III - A patient with severe systemic disease. After reviewing the risks and benefits, the patient was deemed in satisfactory condition to undergo the procedure. The anesthesia plan was to use monitored anesthesia care (MAC). Immediately prior to administration of medications, the patient was re-assessed for adequacy to receive sedatives. The heart rate, respiratory rate, oxygen saturations, blood pressure, adequacy of pulmonary ventilation, and response to care were monitored PATIENT NAME: SARINA POSADA throughout the procedure. The physical status of the patient was re-assessed after the procedure. After obtaining informed consent, the endoscope was passed under direct vision. Throughout the procedure, the patient's blood pressure, pulse, and oxygen saturations were monitored continuously. The Endoscope was introduced through the mouth, and advanced to the second part of duodenum. The patient tolerated the procedure fairly well. Findings: The esophagus was normal. One less than 5 mm pedunculated polyp with no bleeding and no stigmata of recent bleeding was found in the gastric body. This was biopsied with a cold forceps for histology. Biopsies were taken with a cold forceps for histology. The mucosa the duodenum was normal. The cardia and gastric fundus were normal on retroflexion. No Hiatal Hernia seen. Impression: - Normal esophagus. - One gastric polyp. Biopsied. - Normal. Recommendation: - The signs and symptoms of potential delayed complications were discussed with the patient. - Await pathology results. - Resume previous diet. - Medication reconciliation was performed, and a list of the patient's discharge medications was provided to the patient. Dr. Beau Moseley Beau Moseley MD 04/25/2023 12:10:38 PM This report has been signed electronically. Number of Addenda: 0 Note Initiated On: 04/25/2023 10:29 AM Estimated Blood Loss: Estimated blood loss: none. Scope In: 11:50:05 AM Scope Out: 11:57:08 AM [address] [place] [address] Provation {[id number]}.pdf ProVation FT PDF at 1210 PATIENT NAME: SARINA POSADA [facility]
[2024-05-09] MEDS ORDERED: ONDANSETRON 4 MG/2 ML VIAL ONE (20:35)
[2024-05-09] MEDS ORDERED: MORPHINE 4 MG/ML SYR ONE (20:36)
[2024-05-09] MEDS ORDERED: ASPIRIN 81 MG CHEWABLE TABLET ONE (20:36)
[2024-05-09] MEDS ORDERED: NA CHLORIDE 0.9% 1,000 ML ONE (20:37)
[2024-05-09 20:40] LABS: Absolute Basophils 0.1 K/uL (0-0.5); Absolute Eosinophils 0.1 K/uL (0-0.5); Absolute Lymphocytes (CBC) 2.2 K/uL (0.7-4.9); Absolute Monocytes 0.5 K/uL (0.1-1.3); Absolute Neutrophil 5.5 K/uL (1.8-8.0); Basophils % 0.8 % (0-1.3); Eosinophils % 1.4 % (0-4.4); Hematocrit 41.9 % (39.6-49.0); Hemoglobin 13.8 g/dL (13.6-17.9); Lymphocytes % 26.4 % (15.3-44.8); MCH 27.7 pg (27.0-35.0); MCV 83.8 fL (80-100); MPV 7.8 fL (7.6-11.3); Monocytes % 6.2 % (3.3-12.3); Neutrophils % 65.2 % (41.7-73.7); Nucleated Red Blood Cells % 0.1 % (0-0); Platelets 239 thou/uL (152-406); Red Cell Distribution Width 14.5 % (12.1-15.2)
[2024-05-09 21:01] LABS: ALT/SGPT 26 U/L (16-61); AST/SGOT 14 U/L (15-37); Albumin 3.4 g/dL (3.4-5.0); Alkaline Phosphatase 86 U/L (45-117); Anion Gap 10.5 mEq/L (5.0-15.0); BUN Blood Urea Nitrogen 12 mg/dL (7-18); Bicarbonate 27 mEq/L (21-32); Bilirubin Total 0.3 mg/dL (0.2-1.0); Globulin 3.4 g/dL (2.3-3.5); Glomerular Filtration Rate 103 ml/min (=/>90); Glucose Level 125 mg/dL (74-106); Magnesium 2.2 mg/dL (1.6-2.4); NT PRO-BNP 19 pg/mL (<125); Potassium 3.5 mEq/L (3.5-5.1); Protein, Total 6.8 g/dL (6.4-8.2); Sodium Level 141 mEq/L (136-145)
[2024-05-09 21:04] LABS: Bilirubin Direct < 0.2 mg/dL (0-0.2); Bilirubin Indirect, Calculated 0.1 mg/dL (0.2-0.8); PT Prothrombin Time 11.5 SECONDS (10-13.0); Protime INR 1.01; Troponin High Sensitivity < 3.0 pg/mL (<58.9)
--- NOTE | 2024-05-09 21:22 | RAD REPORT ---
EXAMINATION: ONE VIEW CHEST XR CLINICAL INDICATION: CHEST PAIN TECHNIQUE: Frontal chest projection is submitted. Examination is limited by patient positioning and t echnique. COMPARISON: No prior exam. FINDINGS: The lungs are well inflated and clear. The heart is normal in size. No displaced fractures identified . IMPRESSION: No acute intrathoracic abnormalities.
--- NOTE | 2024-05-09 21:52 | EDPHYS ---
Physician Documentation [facility] Name: Wilfredo Burns Age: 53 yrs Sex: Male : 1970 Arrival Date: 05/09/2024 Time: 19:57 Bed 20 Private MD: ED Physician Adolph Riley HPI: 05/09 20:15 This 53 yrs old Male presents to ER via Ambulatory with complaints of Chest cp Pain. 20:15 The patient or guardian reports chest pain that is located primarily in the anterior cp chest wall. 20:15 Onset: this morning, about 0300. cp Historical: - Allergies: 20:08 No Known Allergies; cm10 - PMHx: 20:08 Diabetes mellitus; Hypercholesterolemia; Neuropathy; cm10 - Immunization history:: Adult Immunizations up to date. - Infectious Disease History:: Denies. - Social history:: Smoking status: Patient denies any tobacco usage or history of. ROS: 20:17 Constitutional: Negative for body aches, chills, fever, poor PO intake, cp 20:17 Cardiovascular: Positive for chest pain, of the left side of chest, Negative for edema, cp palpitations, 20:17 Respiratory: Negative for cough, shortness of breath, wheezing, Exam: 20:17 ECG was reviewed by the Attending Physician. cp 20:20 Constitutional: The patient appears in no acute distress, alert, awake, cp non-diaphoretic, non-toxic, well developed, well nourished, 20:20 Head/Face: Normocephalic, atraumatic. cp 20:20 Eyes: Periorbital structures: appear normal, Conjunctiva: normal, no exudate, no injection, Sclera: no appreciated abnormality, Lids and lashes: appear normal, bilaterally, 20:20 ENT: External ear(s): are unremarkable, Nose: is normal, Mouth: Lips: moist, Oral cp mucosa: moist, Posterior pharynx: Airway: no evidence of obstruction, patent, 20:20 Neck: ROM/movement: is normal, is supple, without pain, no range of motions cp limitations, 20:20 Chest/axilla: Inspection: normal, 20:20 Cardiovascular: Rate: normal, Rhythm: regular, Edema: is not appreciated, JVD: is not appreciated, 20:20 Respiratory: the patient does not display signs of respiratory distress, Respirations: normal, no use of accessory muscles, no retractions, labored breathing, is not present, Breath sounds: are clear throughout, no decreased breath sounds, no stridor, no wheezing, 20:20 Abdomen/GI: Inspection: abdomen appears normal, Palpation: abdomen is soft and non-tender, in all quadrants, 20:20 Back: pain, is absent, ROM is normal, 20:20 Neuro: Orientation: to person, place \T\ time. Mentation: is normal, Motor: moves all fours, strength is normal, Sensation: is normal, Vital Signs: 20:07 BP 98 / 78; Pulse 89; Resp 15; Temp 98.1(O); Pulse Ox 96% on R/A; Weight 111.13 kg; cm10 Height 5 ft. 8 in. ; Pain 5/10; 21:30 BP 108 / 66; Pulse 75; Resp 17; Pulse Ox 99% on R/A; Pain 0/10; rg5 20:07 Body Mass Index 37.25 (111.13 kg, 172.72 cm) cm10 20:07 Pain Scale: Adult cm10 21:30 Pain Scale: Adult rg5 MDM: 20:03 Medical Screening Exam initiated cp 21:49 Data reviewed: vital signs, nurses notes, lab test result(s), EKG, radiologic studies, cp plain films. I considered the following discharge prescriptions or medication management in the emergency department Medications were administered in the Emergency Department. See MAR. Independent interpretation of the following test(s) in the Emergency Department EKG: See my EKG interpretation above. Care significantly affected by the following chronic conditions: Diabetes. Special discussion: Based on the patient's history, exam, and Dx evaluation, there is no indication for emergent intervention or inpatient Tx. It is understood by the patient/guardian that if the Sx's persist or worsen they need to return immediately for re-evaluation. ED course: VSS. Discussed results of today's testing. Initial EKG and troponin negative. Patient declines any further testing and requests discharge. 05/09 20:14 Order name: Basic Metabolic Panel; Complete Time: 21:08 cp 05/09 21:08 Interpretation: Normal except: GLUC 125. cp 05/09 20:14 Order name: CBC with Diff; Complete Time: 21:08 cp 05/09 21:45 Interpretation: Reviewed. cp 05/09 20:14 Order name: LFT's; Complete Time: 21:08 cp 05/09 21:09 Interpretation: Normal except: AST 14; IBILI, CALC 0.1; A/G 1.0. cp 05/09 20:14 Order name: Magnesium; Complete Time: 21:08 cp 05/09 20:14 Order name: NT PRO-BNP; Complete Time: 21:08 cp 05/09 20:14 Order name: PT-INR; Complete Time: 21:08 cp 05/09 20:14 Order name: Troponin HS; Complete Time: 21:08 cp 05/09 21:09 Interpretation: Reviewed. 05/09 20:55 Order name: Glucose, Ancillary Testing; Complete Time: 21:08 EDMS 05/09 20:14 Order name: XRAY Chest (1 view); Complete Time: 21:44 cp 05/09 21:45 Interpretation: Report review. 05/09 20:14 Order name: Cardiac monitoring; Complete Time: 20:40 cp 05/09 20:14 Order name: EKG - Nurse/Tech; Complete Time: 20:39 cp 05/09 20:14 Order name: IV Saline Lock; Complete Time: 21:02 cp 05/09 20:14 Order name: Labs collected and sent; Complete Time: 21:02 cp 05/09 20:14 Order name: O2 Per Protocol; Complete Time: 21:02 cp 05/09 20:14 Order name: O2 Sat Monitoring; Complete Time: 21:02 cp 05/09 20:14 Order name: Accucheck Blood Glucose; Complete Time: 20:41 cp EC:17 Rate is 81 beats/min. Rhythm is regular. DE interval is normal. QRS interval is cp prolonged at 102 msec. QT interval is normal. T waves are Inverted in lead aVR. Interpreted by me. Reviewed by me. Administered Medications: 20:41 Drug: Aspirin PO Chewable Tablet 324 mg PO once; 81 mg tablets x 4 Route: PO; rg5 21:57 Follow up: Response: No adverse reaction rg5 20:41 Drug: NS 0.9% IV 1000 ml IV at 1000 ml once; to be given as a bolus over 60 minutes rg5 Route: IV; Rate: 1000 ml; Site: right antecubital; 21:57 Follow up: IV Status: Completed infusion; IV Intake: 1000ml rg5 21:01 Drug: morphine IVP or IV 4 mg IVP once over 4 mins Route: IVP; Infused Over: 4 mins; rg5 Site: right antecubital; 21:57 Follow up: Response: No adverse reaction; Pain is decreased rg5 21:01 Drug: Ondansetron IVP 4 mg IVP once; over 2 minutes Route: IVP; Site: right antecubital;rg5 21:57 Follow up: Response: No adverse reaction rg5 Disposition Summary: 05/09/24 21:52 Discharge Ordered Notes: Location: Home cp Problem: new cp Symptoms: have improved cp Condition: Stable cp Diagnosis - Chest pain, unspecified cp Followup: cp - With: Huber Ferrari MD - When: 2 - 3 days - Reason: Recheck today's complaints Discharge Instructions: - Discharge Summary Sheet cp - Nonspecific Chest Pain, Adult cp - Exercise Stress Test cp - Aspirin and Your Heart cp Forms: - Medication Reconciliation Form cp - Antibiotic Education cp - Prescription Opioid Use cp - Patient Portal Instructions cp - Leadership Thank You Letter cp Addendum: 05/11/2024 00:17 I was immediately available for consultation during this patient's visit. I did not e c2 personally see the patient or discuss the patient with the SUNITHA. . Signatures: Dispatcher [employer] EDMS Julio Mckinney PA PA cp Martinez, Clarissa, RN RN cm10 Adolph Riley MD MD ec2 Gerardo Hernandez RN RN rg5 Corrections: (The following items were deleted from the chart) 05/09 20:09 20:08 PMHx: Hypertensive disorder; cm10 cm10 20:14 20:14 BASIC METABOLIC PANEL+C.LAB.BRZ ordered. EDMS EDMS 20:14 20:14 CBC+H.LAB.BRZ ordered. EDMS EDMS 20:14 20:14 HEPATIC FUNCTION+C.LAB.BRZ ordered. EDMS EDMS 20:14 20:14 MAGNESIUM+C.LAB.BRZ ordered. EDMS EDMS 20:14 20:14 PROBNP+C.LAB.BRZ ordered. EDMS EDMS 20:14 20:14 PROTIME (+INR)+COAG.LAB.BRZ ordered. EDMS EDMS 20:14 20:14 Troponin High Sensitivity+C.LAB.BRZ ordered. EDMS EDMS 20:14 20:14 Chest Single View+RAD.RAD.BRZ ordered. EDMS EDMS
--- NOTE | 2024-05-09 21:52 | ER ---
Nurse's Notes [facility] Name: Wilfredo Burns Age: 53 yrs Sex: Male : 1970 Arrival Date: 05/09/2024 Time: 19:57 Bed 20 Private MD: Diagnosis: Chest pain, unspecified Presentation: 05/09 20:07 Chief complaint: Patient states: Left sided chest pain that he describes as squeezing cm10 onset today. Pt states that the pain woke him up from his sleep. Pt reports that the pain is intermittent. Coronavirus screen: Client denies travel out of the [place] in the last 14 days. Ebola Screen: Patient denies travel to an Ebola-affected area in the 21 days before illness onset. Initial Sepsis Screen: Does the patient meet any 2 criteria? No. Patient's initial sepsis screen is negative. Does the patient have a suspected source of infection?. Initial Sepsis Screen: Does the patient have a suspected source of infection? No. Patient's initial sepsis screen is negative. Risk Assessment: Do you want to hurt yourself or someone else? Patient reports no desire to harm self or others. Onset of symptoms was May 09, 2024. 20:07 Method Of Arrival: Ambulatory cm10 20:07 Acuity: VINAY 2 cm10 Triage Assessment: 20:09 General: Appears in no apparent distress. comfortable, Behavior is calm, cooperative. cm10 Neuro: No deficits noted. Level of Consciousness is awake, alert, obeys commands, Oriented to person, place, time, situation, Appropriate for age. Respiratory: No deficits noted. Airway is patent Respiratory effort is even, unlabored, Respiratory pattern is regular, symmetrical. Historical: - Allergies: 20:08 No Known Allergies; cm10 - PMHx: 20:08 Diabetes mellitus; Hypercholesterolemia; Neuropathy; cm10 - Immunization history:: Adult Immunizations up to date. - Infectious Disease History:: Denies. - Social history:: Smoking status: Patient denies any tobacco usage or history of. Screenin:59 [facility] ED Fall Risk Assessment (Adult) History of falling in the last 3 months, rg5 including since admission No falls in past 3 months (0 pts) Confusion or Disorientation No (0 pts) Intoxicated or Sedated No (0 pts) Impaired Gait No (0 pts) Mobility Assist Device Used No (0 pt) Altered Elimination No (0 pt) Score/Fall Risk Level 0 - 2 = Low Risk Oriented to surroundings, Maintained a safe environment, Hourly rounding (assess needs \T\ fall precautionary measures) done. Abuse screen: Denies threats or abuse. Nutritional screening: No deficits noted. Tuberculosis screening: No symptoms or risk factors identified. Assessment: 20:00 Reassessment: Patient and/or family updated on plan of care and expected duration. Pain rg5 level reassessed. General: Appears in no apparent distress. Pain: Complains of pain in chest. 21:30 Reassessment: No changes from previously documented assessment. Patient and/or family rg5 updated on plan of care and expected duration. Pain level reassessed. 21:59 General: Appears in no apparent distress. Behavior is calm, cooperative, appropriate rg5 for age. Pain: Complains of pain in chest Pain does not radiate. Pain began 4 hours ago. Neuro: Level of Consciousness is awake, alert, obeys commands. Cardiovascular: Reports chest pain. Cardiovascular: Patient's skin is warm and dry. Rhythm is sinus rhythm. Respiratory: Airway is patent Trachea midline. GI: Abdomen is round non-distended, Abd is soft and non tender. : No signs and/or symptoms were reported regarding the genitourinary system. Vital Signs: 20:07 BP 98 / 78; Pulse 89; Resp 15; Temp 98.1(O); Pulse Ox 96% on R/A; Weight 111.13 kg; cm10 Height 5 ft. 8 in. ; Pain 5/10; 21:30 BP 108 / 66; Pulse 75; Resp 17; Pulse Ox 99% on R/A; Pain 0/10; rg5 20:07 Body Mass Index 37.25 (111.13 kg, 172.72 cm) cm10 20:07 Pain Scale: Adult cm10 21:30 Pain Scale: Adult rg5 ED Course: 20:00 Patient arrived in ED. jj6 20:00 No provider procedures requiring assistance completed. Inserted saline lock: 20 gauge rg5 in right antecubital area, using aseptic technique. Blood collected. Flushed with 10 mL NS. Patient maintains SpO2 saturation greater than 95% on room air. 20:03 Julio Mckinney PA is PHCP. cp 20:03 Adolph Riley MD is Attending Physician. cp 20:08 Triage completed. cm10 20:09 Arm band placed on right wrist. Patient placed in an exam room, on a stretcher. EKG cm10 completed in triage. Results shown to MD. 20:12 EKG done, by ED staff, reviewed by Julio DELANEY. sa1 20:23 Gerardo Hernandez, CARMEN is Primary Nurse. rg5 21:09 XRAY Chest (1 view) In Process Unspecified. EDMS 21:51 Huber Ferrari MD is Referral Physician. cp 21:59 Patient has correct armband on for positive identification. Client placed on continuous rg5 cardiac and pulse oximetry monitoring. NIBP monitoring applied. clinical research monitor on. Pulse ox on. Door closed. Noise minimized. 22:01 IV discontinued, bleeding controlled, No redness/swelling at site. Pressure dressing rg5 applied. 22:02 Provided Education on: post er care. rg5 Administered Medications: 20:41 Drug: Aspirin PO Chewable Tablet 324 mg PO once; 81 mg tablets x 4 Route: PO; rg5 21:57 Follow up: Response: No adverse reaction rg5 20:41 Drug: NS 0.9% IV 1000 ml IV at 1000 ml once; to be given as a bolus over 60 minutes rg5 Route: IV; Rate: 1000 ml; Site: right antecubital; 21:57 Follow up: IV Status: Completed infusion; IV Intake: 1000ml rg5 21:01 Drug: morphine IVP or IV 4 mg IVP once over 4 mins Route: IVP; Infused Over: 4 mins; rg5 Site: right antecubital; 21:57 Follow up: Response: No adverse reaction; Pain is decreased rg5 21:01 Drug: Ondansetron IVP 4 mg IVP once; over 2 minutes Route: IVP; Site: right antecubital;rg5 21:57 Follow up: Response: No adverse reaction rg5 Medication: 21:59 VIS not applicable for this client. rg5 Intake: 21:57 IV: 1000ml; Total: 1000ml. rg5 Outcome: 21:52 Discharge ordered by . cp 22:14 Discharged to home ambulatory, rg5 22:14 Condition: stable 22:14 Instructed on discharge instructions, follow up and referral plans. Demonstrated understanding of instructions, follow-up care, 22:14 Patient left the ED. rg5 Signatures: Dispatcher [email or web address] EDMS Julio Mckinney PA PA cp Jeffries, Jennifer [email or web address] Anne Whitley RN RN cm10 Gerardo Hernandez RN RN rg5 Sultan Pedro 1 Corrections: (The following items were deleted from the chart) : 20:08 PMHx: Hypertensive disorder; cm10 cm10
[2024-05-09 22:36] VITALS: TEMP 98.1
[2024-05-09 22:38] VITALS: BP 108/66; O2SAT 99
== END 2024-05-09 22:14 | disposition home or self-care (01) ==
LOC: ER 19:57
DX: R07.89 Other chest pain (principal)
CPT/HCPCS: 96361; 93005; 85025; 80048; 36415; 83735; 85610; 82947; 80076; 84484; 83880; 71045; 96375; 96374; 99285; J2405; J7030